=== PATIENT | female | born 1995 | race Two or more races ===

== ENCOUNTER 2024-12-25 11:05 | Emergency (ER) | payer MEDICAID, OTHER ==
[~2024-12-25] VITALS: Ht 154.9 cm; Wt 64.5 kg
[2024-12-25 11:51] VITALS: BP 135/69; PULSE 81; RESP 15; TEMP 98.7; O2SAT 100
--- NOTE | 2024-12-25 12:28 | ED.PDOC ---
History of Present Illness HPI Comments This is a 29-year-old female that comes in with jaw pain. She had dental work on Thursday she thinks it was a revision of a root canal. She is on Zithromax and Motrin. She states that ever since Thursday occurred the pain has been gradually becoming worse and worse. She is here primarily for management. Denies any fever or chills. Chief Complaint: Jaw Pain Time Seen by MD: 12:13 Primary Care Provider: BHARATH Feng Notes: Nurses Notes, Medications, Allergies Allergies: Coded Allergies: NO KNOWN ALLERGIES (Unverified , 12/25/24) Information Source: Patient Mode of Arrival: Ambulatory Past Medical History PAST MEDICAL HISTORY: Denies Surgical History: Social History Smoker: Non-Smoker Alcohol: Denies ETOH Use Drugs: Denies Drug Use Lives In: Home Constitutional: reports: others (pain) EENTM: reports: mouth pain Physical Exam General Appearance: No Apparent Distress, Normal HEENT: Normal ENT Inspection, Pharynx Normal, TMs Normal, Other (Swelling near the 3rd bottom molar were dental work was done, right cheek also with swelling no erythema no abscess felt) Neck: Full Range of Motion, Non-Tender, Normal Inspection, Supple Respiratory: Lungs Clear, No Respiratory Distress, Normal Breath Sounds Cardiovascular: Regular Rate/Rhythm Breast Exam: Deferred Gastrointestinal: Non Tender, Normal Bowel Sounds, Soft Genitalia: Deferred Pelvic: Deferred Rectal: Deferred Extremities: Normal inspection, Normal range of motion Neurologic: Alert, Normal Affect, Normal Mood Cerebellar Function: NOT DONE Reflexes: NOT DONE Skin: Dry, Warm Lymphatic: No Adenopathy Was a procedure done? Was a procedure done?: No Differential Dx Considerations may include: Cellulitis, tooth abscess X-Ray, Labs, Meds, VS Vital Signs Date Time Temp Pulse Resp B/P (MAP) Pulse Ox O2 Delivery O2 Flow Rate FiO2 12/25/24 11:51 81 15 100 Room Air 12/25/24 11:51 98.7 81 15 135/69 (91) 100 98.7 12/25/24 11:09 98.7 81 15 135/69 (91) 100 98.7 X-Ray, Labs, Meds, VS Comment Patient seen and examined by me. Patient had extensive tooth work done on Thursday and has in his having the normal amount of pain and swelling postprocedure. She is on anti-inflammatories and she is also taking antibiotics. No abscess no increase infection at the moment. I will give her some [place] here for pain relief. I also instructed her to apply a ice to the area to help with swelling.. Instructed to call her dentist on Thursday. Time of 1ST Reevaluation: 12:40 Reevaluation 1ST: Improved Patient Education/Counseling: Diagnosis, Treatment, Prognosis, Need For Follow Up Family Education/Counseling: No Family Present Departure 1 Departure Time of Disposition: 12:40 Impression: Primary Impression: Pain due to dental caries Disposition: 01 HOME / SELF CARE / HOMELESS Condition: Good Additional Instructions: Continue your antibiotics and pain medicine as directed by her dentist Try applying either moist heat or ice to the face where you having the pain Call your dentist on Thursday and let him know how much pain you are having Chew on the opposite side Discharged With: Self Critical Care Note Critical Care Time?: No Stability Stability form required: STACIE Fofana Dec 25, 2024 12:28
[2024-12-25] MEDS: HYDROcodone-ACET 10/325MG TAB PO ONE (12:30)
== END 2024-12-25 12:28 | disposition home or self-care (01) ==
LOC: ER 11:05
DX: K02.9 Dental caries, unspecified (principal)